=== PATIENT | female | born 1965 | race American Indian/Alaskan Native ===

== ENCOUNTER 2016-12-21 14:27 | Outpatient (CLI) | payer OTHER ==
--- NOTE | 2016-12-23 14:47 | Magnetic Resonance Report ---
BILATERAL BREAST MRI WITHOUT AND WITH CONTRAST: 12/21/16 14:27:00 CLINICAL: Abnormal mammogram with bilateral calcifications. COMPARISON:[facility] mammograms from 10/14/16 and 11/25/16. [facility] bilateral breast ultrasound from 11/25/16. TECHNIQUE: Axial 1.0-mm T1 without, axial high resolution 2.0-mm T2 and axial 1.0-mm dynamic Vibrant high-resolution postcontrast T1 fat saturation sequences on a 1.5 Taylor magnet. The examination was performed with an 8 channel dedicated [place] breast coil. Post processing with CAD and subtraction was performed on an [employer] workstation. 20 cc of Multihance was injected without incident for the contrast portion of the exam. Consent was obtained prior to the administration of the contrast. FINDINGS: Right: Moderate background parenchymal enhancement. Numerous foci of parenchymal enhancement with a predominant type II persistent waveform. No mass or suspicious enhancement. No suspicious lymph nodes. Numerous small cysts throughout the right breast. The largest has an irregular shape, is at 9:30 o'clock approximately 5 cm from the nipple and measures 9 mm. Left: Moderate background parenchyma enhancement. There is greater enhancement of the left breast than the right. Numerous foci of parenchyma enhancement with a predominant type III washout waveform. However, no mass or suspicious enhancement. Numerous small cysts throughout the left breast. The largest is central and posterior and measures 1.0 cm. IMPRESSION: 1. No suspicion of malignancy. However, a negative MRI does not exclude malignancy. Breast calcifications should be managed based on the mammographic findings. 2. Bilateral benign cysts. 3. Asymmetric pattern of parenchymal enhancement with greater enhancement and a different pattern of enhancement in the left breast. This is an unusual finding and of uncertain significance. RIGHT BI-RADS 2 -- Benign LEFT BI-RADS 2 -- Benign
== END 2016-12-21 14:28 | disposition home or self-care (01) ==
LOC: SPVIMAG 14:27
PROVIDERS: ATTEND Family Medicine
DX: N60.01 Solitary cyst of right breast (principal); N60.02 Solitary cyst of left breast; R92.0 Mammographic microcalcification found on diagnostic imaging of breast; R92.1 Mammographic calcification found on diagnostic imaging of breast
CPT/HCPCS: 0159T; A9577; C8908; 77059

== ENCOUNTER 2017-03-28 11:59 | Outpatient (CLI) | payer OTHER ==
--- NOTE | 2017-03-28 12:42 | Mammography Report ---
RIGHT DIGITAL DIAGNOSTIC MAMMOGRAM with CAD: 03/28/17 11:59:00 CLINICAL: Follow-up calcifications. COMPARISON:[facility] mammograms from November 2016 and January 2017 FINDINGS: Routine views plus ML and CC magnification views demonstrate a group of large coarse irregular calcifications in the upper-outer quadrant.The calcifications have benign morphology and have not changed. No associated mass or architectural distortion. IMPRESSION: Benign calcifications. BI-RADS CATEGORY: 2 - - Benign RECOMMENDATION: Routine mammographic screening. ACR BI-RADS MAMMOGRAPHIC CODES: 0 = Needs additional imaging evaluation; 1 = Negative; 2 = Benign; 3 = Probably benign; 4 = Suspicious; 5 = Malignant; 6 = Known biopsy-proven malignancy COMMENT: 1. Dense breast tissue, i.e., adenosis, fibrocystic changes, etc., may obscure an underlying neoplasm. 2. Approximately 10% of cancers are not detected with mammography. 3. A negative mammography report should not delay biopsy if a clinically suspicious mass is present. COMMENT: Patient follow-up letters are generated by our [employer] application.
== END 2017-03-28 12:00 | disposition home or self-care (01) ==
LOC: SPVWC 11:59
PROVIDERS: ATTEND Surgery
DX: R92.1 Mammographic calcification found on diagnostic imaging of breast (principal); E11.9 Type 2 diabetes mellitus without complications
CPT/HCPCS: G0206-RT

== ENCOUNTER 2017-05-30 13:24 | Outpatient (CLI) | payer OTHER ==
--- NOTE | 2017-05-30 16:27 | Ultrasound Report ---
BILATERAL BREAST ULTRASOUND: 05/30/17 13:24:00 CLINICAL: Six-month followup bilateral probable cysts. COMPARISON: [facility] November 2016 FINDINGS: Ultrasound of the right breast demonstrated three benign cysts and no solid mass. A cyst at 12 o'clock one centimeters from the nipple measures 3 x 3 x 3 mm and is slightly smaller. A slightly smaller cyst at 2 o'clock 2 cm from the nipple measures 4 x 4 by 2 mm. A smaller cyst at 9 o'clock 2 cm from the nipple measures 4 x 3 x 3 mm. Ultrasound of the left breast demonstrated a complex cyst versus lymph node at 2 o'clock 4 cm from the nipple measuring 6 x 4 x 5 mm. A benign cyst at 12 o'clock 5 cm from the nipple measures 3 x 3 x 2 mm. A cyst at 2 o'clock these 3 cm from the nipple measures 6 x 5 x 2 mm. A cyst at 11 o'clock 3 cm from the nipple measures 3 x 4 x 3 mm. A cyst at 3 o'clock 5 cm from the nipple measures 7 x 4 x 4 mm. No definite solid mass. IMPRESSION: Bilateral benign cysts and a complex cyst versus benign lymph node at 2 o'clock 4 cm from the nipple. Recommend ultrasound guided cyst aspiration of this complex cyst versus lymph node. BI-RADS 4A--Mildly Suspicious
== END 2017-05-30 13:25 | disposition home or self-care (01) ==
LOC: SPVWC 13:24
PROVIDERS: ATTEND Surgery
DX: N60.01 Solitary cyst of right breast (principal); N60.02 Solitary cyst of left breast

== ENCOUNTER 2017-05-31 14:48 | Outpatient (CLI) | payer OTHER | END 2017-05-31 14:49 | disposition home or self-care (01) | LOC: LABHHL 14:48 | PROVIDERS: ATTEND Surgery | DX: N60.02 Solitary cyst of left breast (principal) | CPT/HCPCS: 88112 ==

== ENCOUNTER 2017-11-28 15:14 | Outpatient (CLI) | payer OTHER ==
--- NOTE | 2017-11-29 08:20 | Mammography Report ---
BILATERAL DIGITAL DIAGNOSTIC MAMMOGRAM with CAD: 11/28/17 15:14:00 CLINICAL: Screening. History of an abnormal mammogram with bilateral calcifications. COMPARISON:Right mammogram only from 03/28/17 and MRI breast bilateral 12/21/16. FINDINGS: The breasts are heterogeneously dense, which may obscure small masses. The screening examination was reviewed and it was determined that additional diagnostic mammographic views should be performed. A left upper outer parenchymal asymmetry demonstrates satisfactory effacement on spot magnification CC views and rolled left CC views.Stable right retroareolar calcifications with benign morphology. No mass, architectural distortion or suspicious calcifications. IMPRESSION: No mammographic evidence of malignancy.However, the breasts are relatively dense. Consider bilateral breast ultrasound. BI-RADS CATEGORY: 0--Needs Additional Imaging RECOMMENDATION: Bilateral global breast ultrasound. ACR BI-RADS MAMMOGRAPHIC CODES: 0 = Needs additional imaging evaluation; 1 = Negative; 2 = Benign; 3 = Probably benign; 4 = Suspicious; 5 = Malignant; 6 = Known biopsy-proven malignancy COMMENT: 1. Dense breast tissue, i.e., adenosis, fibrocystic changes, etc., may obscure an underlying neoplasm. 2. Approximately 10% of cancers are not detected with mammography. 3. A negative mammography report should not delay biopsy if a clinically suspicious mass is present. COMMENT: Patient follow-up letters are generated by our [employer] application.
== END 2017-11-28 15:15 | disposition home or self-care (01) ==
LOC: SPVWC 15:14
PROVIDERS: ATTEND Surgery
DX: N64.89 Other specified disorders of breast (principal); R92.8 Other abnormal and inconclusive findings on diagnostic imaging of breast
CPT/HCPCS: 77066; 77067

== ENCOUNTER 2017-12-19 10:13 | Outpatient (CLI) | payer OTHER ==
--- NOTE | 2017-12-19 12:01 | Ultrasound Report ---
BILATERAL BREAST ULTRASOUND: 12/19/17 10:13:00 CLINICAL: Abnormal mammogram. COMPARISON: 11/28/17 FINDINGS: Ultrasound(including all four quadrants and the retroareolar area of both breasts) was performed and demonstrated no solid mass or shadowing. Numerous bilateral benign cysts and a few bilateral dilated ducts with no intraductal masses. The largest cyst on the right is at 9 o'clock 4 cm from the nipple and it measures 1.0 x 0.8 x 0.5 cm. The largest left breast cyst is at 2 o'clock 3 cm from the nipple and it measures 0.9 and 0.4 x 0.7 cm. A dilated duct at 2 o'clock 7 cm from the nipple measures 16 mm in length. IMPRESSION: Bilateral benign cysts and bilateral benign duct ectasia. BI-RADS 2 - - Benign RECOMMENDATION: Routine mammographic screening in one year.
== END 2017-12-19 10:14 | disposition home or self-care (01) ==
LOC: SPVWC 10:13
PROVIDERS: ATTEND Surgery
DX: N60.01 Solitary cyst of right breast (principal); N60.02 Solitary cyst of left breast; N60.42 Mammary duct ectasia of left breast; N60.41 Mammary duct ectasia of right breast

== ENCOUNTER 2018-12-04 09:40 | Outpatient (CLI) | payer OTHER ==
--- NOTE | 2018-12-04 10:12 | Mammography Report ---
BILATERAL DIGITAL SCREENING MAMMOGRAM with CAD : 12/04/18 09:40:00 CLINICAL: Routine screening. COMPARISON:11/28/17 FINDINGS: The breasts are heterogeneously dense, which may obscure small masses. No mass, architectural distortion or suspicious calcifications. IMPRESSION: No mammographic evidence of malignancy. BI-RADS CATEGORY: 2 -- Benign RECOMMENDATION: Routine mammographic screening in one year. COMMENT: Patient follow-up letters are generated by our [employer] application.
== END 2018-12-04 09:41 | disposition home or self-care (01) ==
LOC: SPVWC 09:40
PROVIDERS: ATTEND Surgery
DX: Z12.31 Encounter for screening mammogram for malignant neoplasm of breast (principal); E11.9 Type 2 diabetes mellitus without complications
CPT/HCPCS: 77067

== ENCOUNTER 2019-12-10 08:15 | Outpatient (CLI) | payer OTHER ==
--- NOTE | 2019-12-10 08:52 | Mammography Report ---
DIGITAL SCREENING MAMMOGRAM WITH CAD, 12/10/2019 INDICATION: Routine screening mammography. TECHNIQUE: Digital bilateral 2D mammography was obtained in the craniocaudal and mediolateral obliq ue projections. This examination was interpreted with the benefit of Computer-Aided Detection analysi s. COMPARISON: 11/28/2017, 12/04/2018 FINDINGS: Breast Density: The breasts are heterogeneously dense, which may obscure small masses. There is no evidence of dominant mass, suspicious calcifications or architectural distortion in eithe r breast. Stable bilateral benign-appearing nodularity. Benign calcification is present in the centra l right breast. IMPRESSION: No evidence of malignancy. Follow up recommendation: Routine yearly BI-RADS Category 2: Benign. A "normal" or negative report should not discourage follow up or biopsy of a clinically significant f inding. A written summary of these findings will be mailed to the patient. The patient will be entered into a mammography reporting system which will generate a reminder letter for the patient's next appointmen t at the appropriate interval. The [employer] recommends yearly mammograms starting at age 40 and continuing as l hailey as a woman is in good health. Breast MRI is recommended for women with an approximate 20-25% or greater lifetime risk of breast cancer, including women with a strong family history of breast or ova lindsey cancer or who have been treated for Hodgkin's disease. Signer Name: Danielle Galeana MD Signed: 12/10/2019 8:47 AM Workstation Name: [id number]
== END 2019-12-10 08:16 | disposition home or self-care (01) ==
LOC: SPVWC 08:15
PROVIDERS: ATTEND Surgery
DX: Z12.31 Encounter for screening mammogram for malignant neoplasm of breast (principal)
CPT/HCPCS: 77067

== ENCOUNTER 2020-12-15 08:46 | Outpatient (CLI) | payer OTHER ==
--- NOTE | 2020-12-15 09:38 | Mammography Report ---
DIGITAL SCREENING MAMMOGRAM WITH CAD, 12/15/2020 CLINICAL INFORMATION / INDICATION: Routine screening mammography. TECHNIQUE: Digital bilateral 2D mammography was obtained in the craniocaudal and mediolateral obliqu e projections. This examination was interpreted with the benefit of Computer-Aided Detection analysis . COMPARISON: Prior mammograms 12/10/2019 and 11/28/2017 FINDINGS: Breast Density: The breasts are heterogeneously dense, which may obscure small masses. No dominant mass, suspicious calcifications, or architectural distortion in either breast. There is stable benign-appearing nodularity seen in both breasts and stable benign-appearing calcific ation in the right breast. There has been no significant change compared with the prior examinations. IMPRESSION: No mammographic evidence of malignancy. Follow up recommendation: Routine yearly BI-RADS Category 2: Benign. A "normal" or negative report should not discourage follow up or biopsy of a clinically significant f inding. A written summary of these findings will be mailed to the patient. The patient will be entered into a mammography reporting system which will generate a reminder letter for the patient's next appointmen t at the appropriate interval. The [employer] recommends yearly mammograms starting at age 40 and continuing as l hailey as a woman is in good health. Breast MRI is recommended for women with an approximate 20-25% or greater lifetime risk of breast cancer, including women with a strong family history of breast or ova lindsey cancer or who have been treated for Hodgkin's disease. Signer Name: Araceli Nagy MD Signed: 12/15/2020 9:34 AM Workstation Name: [id number]
== END 2020-12-15 08:47 | disposition home or self-care (01) ==
LOC: SPVWC 08:46
PROVIDERS: ATTEND Surgery
DX: Z12.31 Encounter for screening mammogram for malignant neoplasm of breast (principal); N64.89 Other specified disorders of breast
CPT/HCPCS: 77067